=== PATIENT | female | born 1955 | race Caucasian/White ===

== ENCOUNTER 2018-05-24 11:00 | Day surgery (SDC) | payer BC ==
[~2018-05-24] VITALS: Ht 165.1 cm; Wt 97.9 kg
[~2018-05-24 11:00] MED LIST: ATOR10TA70 PO; BENA20TA2 PO; DICL100G15 TOP; ESCI20TA38 PO; ESOM40CA49 PO; EXEM25TA5 PO; HCTZ25T PO; LEVO50TA66 PO
[2018-05-24] MEDS ORDERED: ASPI81TA52 PO (11:40)
[2018-05-24] MEDS ORDERED: CALC600T12 PO (11:40)
[2018-05-24 12:21] VITALS: BP 151/92
--- NOTE | 2018-05-24 14:00 | NUR ---
DR SMITH AND MAGGIE Mckinnon, MANAGER OF HOSPITAL, AT THE BEDSIDE. 3ML LIDOCAINE USED WITH NO SEDATION. SEVERAL CORE BIOPSIES TAKEN AND SENT TO LAB. PT TOLERATED WELL.
--- NOTE | 2018-05-24 14:14 | NUR ---
DISCHARGE AND FOLLOW UP INSTRUCTIONS REVIEWED. PT DISCHARGED HOME. PT HAD ALL BELONGINGS.
== END 2018-05-24 14:14 | disposition home or self-care (01) ==
LOC: SSTAY O 11:00
PROVIDERS: ATTEND Radiology Vascular & Interventional Radiology
DX: R59.9 Enlarged lymph nodes, unspecified (principal); Z79.82 Long term (current) use of aspirin; Z79.899 Other long term (current) drug therapy; I10 Essential (primary) hypertension; E78.5 Hyperlipidemia, unspecified; Z87.442 Personal history of urinary calculi; Z98.890 Other specified postprocedural states; Z85.3 Personal history of malignant neoplasm of breast; Z80.3 Family history of malignant neoplasm of breast; Z82.3 Family history of stroke; Z90.13 Acquired absence of bilateral breasts and nipples
CPT/HCPCS: 20206; 38505; 76942

== ENCOUNTER 2022-01-18 11:07 | Day surgery (SDC) | payer BC ==
[2022-01-18] VITALS (11 sets, daily range): BP systolic 115–158; BP diastolic 65–93
[~2022-01-18] VITALS: Ht 162.6 cm; Wt 69.3 kg
[~2022-01-18 11:07] MED LIST changes: +ASPI81TA52 PO; +CALC600T35 PO; -DICL100G15 TOP; -ESCI20TA38 PO; +ESCI20TA39 PO; -ESOM40CA49 PO; -EXEM25TA5 PO; -HCTZ25T PO; +HYDR25TA5 PO; -LEVO50TA66 PO
[2022-01-18] MEDS ORDERED: normal saline 1000ml 1,000 ML IV PRN (11:40)
[2022-01-18] MEDS: normal saline 1000ml 1,000 ML IV SCH (12:00)
[2022-01-18] MEDS ORDERED: LEVO50TA66 PO (12:01)
[2022-01-18] MEDS ORDERED: GABA-530 PO (12:01)
[2022-01-18] MEDS ORDERED: APIX5TAB3 PO (12:01)
[2022-01-18] MEDS ORDERED: FENO145T25 PO (12:01)
[2022-01-18] MEDS ORDERED: VENL37.589 PO (12:01)
[2022-01-18] MEDS ORDERED: METO-395 PO (12:01)
[2022-01-18] MEDS ORDERED: OMEG100037 PO (12:01)
[2022-01-18] MEDS ORDERED: MULT-1085 PO (12:01)
[2022-01-18] MEDS ORDERED: OXYC10TA47 PO (12:01)
[2022-01-18] MEDS ORDERED: CHOL20004 PO (12:01)
[2022-01-18] MEDS ORDERED: PRAV20TA4 PO (12:01)
[2022-01-18] MEDS ORDERED: fentaNYL/PF 50MCG/1 ML 2ML syringe ONE (12:26)
[2022-01-18] MEDS ORDERED: midazolam 1 mg/ML 2ml injection ONE (12:26)
[2022-01-18] MEDS ORDERED: LIDOcaine 1% (10mg/ml) 2ml vial ONE (12:26)
[2022-01-18 12:37] LABS: BASOPHILS # (AUTO) 0.1 X10'3 (0-0.2); BASOPHILS % (AUTO) 0.9 % (0-1); EOSINOPHILS # (AUTO) 0.2 X10'3 (0-0.9); EOSINOPHILS % (AUTO) 2.3 % (0-6); NEUTROPHILS # (AUTO) 5.9 X10'3 (1.8-7.7)
[2022-01-18 12:38] LABS: HEMATOCRIT 28.2 % (35.0-45.0); LYMPHOCYTES # (AUTO) 0.6 X10'3 (1.1-4.8); LYMPHOCYTES % (AUTO) 7.4 % (21-51); MEAN CORPUSCULAR HEMOGLOBIN 28.9 PG (27.0-31.0); MEAN CORPUSCULAR HGB CONC 32.1 g/dL (33.0-36.5); MEAN CORPUSCULAR VOLUME 90.1 FL (78-98); MONOCYTES # (AUTO) 0.9 X10'3 (0-0.9); MONOCYTES % (AUTO) 11.3 % (2-12); NEUTROPHILS % (AUTO) 78.1 % (42-75); PLATELET COUNT 798 X10'3 (140-440); RED BLOOD COUNT 3.13 X10'6 (4.20-5.60); RED CELL DISTRIBUTION WIDTH 19.9 % (11.5-14.5); WHITE BLOOD COUNT 7.5 X10'3 (4.5-11.0)
[2022-01-18] MEDS ORDERED: HYDROcodone/acetaminophen 5mg/325mg tablet PO PRN ×2 (13:00)
[2022-01-18 14:12] LABS: ANISOCYTOSIS 2+; PLATELET ESTIMATE INCREASED; TOTAL CELLS COUNTED 100
[2022-01-18 14:13] LABS: HYPOCHROMASIA 1+; POLYCHROMASIA FEW
[2022-01-18 14:14] LABS: SCHISTOCYTES FEW; STOMATOCYTES FEW
== END 2022-01-18 15:20 | disposition home or self-care (01) ==
LOC: SSTAY O 11:07
PROVIDERS: ATTEND Radiology Vascular & Interventional Radiology
DX: C78.7 Secondary malignant neoplasm of liver and intrahepatic bile duct (principal); C50.919 Malignant neoplasm of unspecified site of unspecified female breast; Z79.899 Other long term (current) drug therapy; Z98.890 Other specified postprocedural states
CPT/HCPCS: 36415; 47000; 77012; 85025; 85610; 99152; 99153; J2250; J3010; J3490; J7030; 85007; A4615